=== PATIENT | female | born 1970 | race Caucasian/White ===

== ENCOUNTER 2017-06-10 08:42 | Emergency (ER) | payer OTHER ==
[~2017-06-10 08:42] MED LIST: ALENDRONATE SOD70 M3 PO; ASPIRIN ADULT L81 M5 PO; COL100 PO; FOLIC ACID1 MG PO; FOS10 PO; GLU500 PO; MET2.5 PO; METHOTREXATE2.5 M2 PO; MOTRIN600 MG PO; PRE5 PO; PRILOSEC20 MG PO
[2017-06-10 10:32] LABS: BASOPHIL % 0.5 % (0-2); PLATELET COUNT 281 x10^3mcL (130-400); RED CELL DISTRIBUTION WIDTH 14.1 % (11.5-14.5)
[2017-06-10 10:34] LABS: CARBON DIOXIDE 26.2 mmol/L (21-32); CHLORIDE SERUM 106 mmol/L (98-107); CREATININE SERUM 0.7 mg/dL (0.6-1.0); GFR1 > 60 mL/min; GLUCOSE SERUM 104 mg/dL (74-106); POTASSIUM SERUM 3.5 mmol/L (3.5-5.1); SODIUM SERUM 143 mmol/L (136-145)
[2017-06-10 10:38] LABS: ALBUMIN 4.2 g/dL (3.4-5.0); ALKALINE PHOSPHATASE 124 U/L (46-116); ALT/SGPT 21 U/L (14-59); AST/SGOT 15 U/L (15-37); BILIRUBIN TOTAL 0.37 mg/dL (0.20-1.00); LIPASE 182 IU/L (73-393)
[2017-06-10 14:33] VITALS: BP 121/71
== END 2017-06-10 15:42 | disposition home or self-care (01) ==
LOC: ED 08:42
PROVIDERS: Emergency Medicine
DX: R19.7 Diarrhea, unspecified (principal); R10.13 Epigastric pain; E11.9 Type 2 diabetes mellitus without complications; M79.7 Fibromyalgia; M81.0 Age-related osteoporosis without current pathological fracture; M06.9 Rheumatoid arthritis, unspecified; Z88.2 Allergy status to sulfonamides; Z88.1 Allergy status to other antibiotic agents; Z88.8 Allergy status to other drugs, medicaments and biological substances
CPT/HCPCS: 87046; 87046-59; J1170; J2405; J7030

== ENCOUNTER 2017-08-29 13:49 | Emergency (ER) | payer OTHER ==
[~2017-08-29] VITALS: Ht 154.9 cm; Wt 56.2 kg
[2017-08-29 14:01] VITALS: BP 164/99; Ht 154.9 cm; Wt 56.2 kg
== END 2017-08-29 14:58 | disposition home or self-care (01) ==
LOC: ED 13:49
DX: L03.012 Cellulitis of left finger (principal)

== ENCOUNTER 2017-10-08 13:25 | Emergency (ER) | payer OTHER ==
[~2017-10-08] VITALS: Ht 154.9 cm; Wt 56.7 kg
[2017-10-08 14:10] VITALS: BP 132/87; Ht 154.9 cm; Wt 56.7 kg
== END 2017-10-08 17:40 | disposition home or self-care (01) ==
LOC: ED 13:25
DX: L02.414 Cutaneous abscess of left upper limb (principal); M79.7 Fibromyalgia; E11.9 Type 2 diabetes mellitus without complications; M06.9 Rheumatoid arthritis, unspecified; M81.0 Age-related osteoporosis without current pathological fracture; Z88.2 Allergy status to sulfonamides; Z88.1 Allergy status to other antibiotic agents; Z88.8 Allergy status to other drugs, medicaments and biological substances

== ENCOUNTER 2018-02-17 20:48 | Emergency (ER) | payer OTHER ==
[~2018-02-17] VITALS: Ht 154.9 cm; Wt 53.5 kg
[2018-02-17 20:53] VITALS: Ht 154.9 cm; Wt 53.5 kg
[2018-02-17 22:19] LABS: BASOPHIL % 0.6 % (0-2); PLATELET COUNT 307 x10^3mcL (130-400); RED CELL DISTRIBUTION WIDTH 14.1 % (11.5-14.5)
[2018-02-17 22:28] LABS: CALCIUM 8.4 mg/dL (8.5-10.1); CARBON DIOXIDE 27.9 mmol/L (21-32); CHLORIDE SERUM 105 mmol/L (98-107); CREATININE SERUM 0.6 mg/dL (0.6-1.0); GFR1 > 60 mL/min; GLUCOSE SERUM 90 mg/dL (74-106); POTASSIUM SERUM 3.7 mmol/L (3.5-5.1); SODIUM SERUM 143 mmol/L (136-145)
[2018-02-17 22:33] LABS: ALBUMIN 3.8 g/dL (3.4-5.0); ALKALINE PHOSPHATASE 124 U/L (46-116); ALT/SGPT 12 U/L (14-59); AST/SGOT 12 U/L (15-37); BILIRUBIN TOTAL 0.3 mg/dL (0.20-1.00); TOTAL PROTEIN, SERUM 7.3 g/dL (6.4-8.2)
[2018-02-17 23:27] VITALS: BP 121/83
== END 2018-02-17 23:27 | disposition home or self-care (01) ==
LOC: ED 20:48
PROVIDERS: Emergency Medicine
DX: M79.1 Myalgia (principal); M06.9 Rheumatoid arthritis, unspecified; Z90.710 Acquired absence of both cervix and uterus; Z90.49 Acquired absence of other specified parts of digestive tract
CPT/HCPCS: 36415; J2270

== ENCOUNTER 2018-06-01 18:15 | Emergency (ER) | payer MEDICAID ==
[~2018-06-01] VITALS: Ht 154.9 cm; Wt 51.7 kg
[2018-06-01 18:55] VITALS: Ht 154.9 cm; Wt 51.7 kg
[2018-06-01 20:11] VITALS: BP 154/96
== END 2018-06-01 20:11 | disposition home or self-care (01) ==
LOC: ED 18:15
DX: M75.91 Shoulder lesion, unspecified, right shoulder (principal); E11.9 Type 2 diabetes mellitus without complications; M06.9 Rheumatoid arthritis, unspecified; M81.0 Age-related osteoporosis without current pathological fracture; F41.9 Anxiety disorder, unspecified; M79.7 Fibromyalgia; Z88.2 Allergy status to sulfonamides; Z90.49 Acquired absence of other specified parts of digestive tract; Z90.710 Acquired absence of both cervix and uterus; Z88.1 Allergy status to other antibiotic agents; Z88.6 Allergy status to analgesic agent

== ENCOUNTER 2018-09-15 19:53 | Emergency (ER) | payer MEDICAID ==
[~2018-09-15] VITALS: Ht 154.9 cm; Wt 57.2 kg
[2018-09-15 21:10] LABS: BASOPHIL % 0.4 % (0-2); PLATELET COUNT 352 x10^3mcL (130-400); RED CELL DISTRIBUTION WIDTH 13.4 % (11.5-14.5)
[2018-09-15 21:21] LABS: CALCIUM 9.6 mg/dL (8.5-10.1); CHLORIDE SERUM 107 mmol/L (98-107); CREATININE SERUM 0.7 mg/dL (0.6-1.0); GFR1 > 60 mL/min; GLUCOSE SERUM 104 mg/dL (74-106); POTASSIUM SERUM 3.5 mmol/L (3.5-5.1); SODIUM SERUM 146 mmol/L (136-145)
[2018-09-15 21:26] LABS: ALBUMIN 4.1 g/dL (3.4-5.0); ALKALINE PHOSPHATASE 93 U/L (46-116); ALT/SGPT 19 U/L (14-59); AST/SGOT 12 U/L (15-37); BILIRUBIN TOTAL 0.35 mg/dL (0.20-1.00); TOTAL PROTEIN, SERUM 8.3 g/dL (6.4-8.2)
[2018-09-15 23:57] VITALS: BP 160/90
== END 2018-09-15 23:57 | disposition home or self-care (01) ==
LOC: ED 19:53
PROVIDERS: Emergency Medicine
DX: G89.29 Other chronic pain (principal); M54.9 Dorsalgia, unspecified; R10.9 Unspecified abdominal pain; E11.9 Type 2 diabetes mellitus without complications; M06.9 Rheumatoid arthritis, unspecified; M81.0 Age-related osteoporosis without current pathological fracture; M79.7 Fibromyalgia; F41.9 Anxiety disorder, unspecified; Z90.710 Acquired absence of both cervix and uterus; Z90.49 Acquired absence of other specified parts of digestive tract; Z88.2 Allergy status to sulfonamides; Z88.1 Allergy status to other antibiotic agents; Z88.6 Allergy status to analgesic agent
CPT/HCPCS: J2270; J2405; J3010; J7030; Q0092

== ENCOUNTER 2019-04-02 23:19 | Emergency (ER) | payer OTHER ==
[~2019-04-02] VITALS: Ht 154.9 cm; Wt 53.1 kg
[2019-04-02 23:31] VITALS: Ht 154.9 cm; Wt 53.1 kg
[2019-04-02 23:55] LABS: microscopic required? NO
[2019-04-03 00:01] LABS: UA SPECIFIC GRAVITY <=1.005 (1.005-1.035); urine erythrocyte NEGATIVE (NEGATIVE)
[2019-04-03 00:06] LABS: BASOPHIL % 0.3 % (0-2); PLATELET COUNT 260 x10^3mcL (130-400); RED CELL DISTRIBUTION WIDTH 13.5 % (11.5-14.5)
[2019-04-03 00:13] LABS: CALCIUM 8.6 mg/dL (8.5-10.1); CARBON DIOXIDE 24.9 mmol/L (21-32); CHLORIDE SERUM 109 mmol/L (98-107); CREATININE SERUM 0.7 mg/dL (0.6-1.0); GFR1 > 60 mL/min; GLUCOSE SERUM 123 mg/dL (74-106); POTASSIUM SERUM 3.1 mmol/L (3.5-5.1); SODIUM SERUM 147 mmol/L (136-145)
[2019-04-03 00:27] LABS: ALBUMIN 3.7 g/dL (3.4-5.0); ALKALINE PHOSPHATASE 103 U/L (46-116); ALT/SGPT 15 U/L (14-59); AST/SGOT 10 U/L (15-37); BILIRUBIN TOTAL 0.5 mg/dL (0.20-1.00); LIPASE 101 IU/L (73-393); TOTAL PROTEIN, SERUM 7.5 g/dL (6.4-8.2)
[2019-04-03 01:34] VITALS: BP 145/87
== END 2019-04-03 01:34 | disposition home or self-care (01) ==
LOC: ED 23:19
PROVIDERS: Emergency Medicine
DX: R10.816 Epigastric abdominal tenderness (principal); R19.7 Diarrhea, unspecified; E11.9 Type 2 diabetes mellitus without complications; M06.9 Rheumatoid arthritis, unspecified; M79.7 Fibromyalgia; F41.9 Anxiety disorder, unspecified; M81.0 Age-related osteoporosis without current pathological fracture; Z90.49 Acquired absence of other specified parts of digestive tract; Z90.710 Acquired absence of both cervix and uterus; Z88.2 Allergy status to sulfonamides; Z88.1 Allergy status to other antibiotic agents; Z88.6 Allergy status to analgesic agent
CPT/HCPCS: J2270; J2765; J3010; J3490; J7030

== ENCOUNTER 2020-04-30 09:43 | Emergency (ER) | payer OTHER ==
[2020-04-30 12:38] VITALS: BP 165/93
== END 2020-04-30 12:38 | disposition home or self-care (01) ==
LOC: ED 09:43
DX: J18.9 Pneumonia, unspecified organism (principal); E11.9 Type 2 diabetes mellitus without complications; M06.9 Rheumatoid arthritis, unspecified; Z88.2 Allergy status to sulfonamides; Z20.828 Contact with and (suspected) exposure to other viral communicable diseases
CPT/HCPCS: U0003-CS

== ENCOUNTER 2020-06-26 11:54 | Emergency (ER) | payer OTHER ==
[~2020-06-26] VITALS: Ht 154.9 cm; Wt 62.6 kg
[2020-06-26 12:23] VITALS: Ht 154.9 cm; Wt 62.6 kg
[2020-06-26 15:29] VITALS: BP 121/88
== END 2020-06-26 15:39 | disposition home or self-care (01) ==
LOC: ED 11:54
DX: S32.009A Unspecified fracture of unspecified lumbar vertebra, initial encounter for closed fracture (principal); E11.9 Type 2 diabetes mellitus without complications; M06.9 Rheumatoid arthritis, unspecified; M81.0 Age-related osteoporosis without current pathological fracture; M79.7 Fibromyalgia; Z90.49 Acquired absence of other specified parts of digestive tract; Z88.1 Allergy status to other antibiotic agents; Z88.2 Allergy status to sulfonamides; Z88.6 Allergy status to analgesic agent; X58.XXXA Exposure to other specified factors, initial encounter; Y93.89 Activity, other specified; Y92.89 Other specified places as the place of occurrence of the external cause; Y99.8 Other external cause status
CPT/HCPCS: J3010

== ENCOUNTER 2020-08-15 16:43 | Inpatient (IN) | payer OTHER ==
[~2020-08-15] VITALS: Ht 165.1 cm; Wt 68.0 kg
[2020-08-15 16:58] VITALS: Ht 165.1 cm; Wt 68.0 kg
[2020-08-15 19:26] LABS: BASOPHIL % 0.4 % (0.2-1.3)
[2020-08-15 19:28] LABS: PLATELET COUNT 388 x10^3mcL (179-408); RED CELL DISTRIBUTION WIDTH 14.2 % (12.3-17.7)
[2020-08-15 19:39] LABS: rbc morphology (normal/abnorm) ABNORMAL (NORMAL)
[2020-08-15 19:56] LABS: CALCIUM 8.7 mg/dL (8.5-10.1); CHLORIDE SERUM 93 mmol/L (98-107); CREATININE SERUM 1.3 mg/dL (0.6-1.0); GFR1 46 mL/min; GLUCOSE SERUM 264 mg/dL (74-106); POTASSIUM SERUM 3.4 mmol/L (3.5-5.1); SODIUM SERUM 129 mmol/L (136-145)
[2020-08-15 20:00] LABS: ALBUMIN 3.5 g/dL (3.4-5.0); ALKALINE PHOSPHATASE 98 U/L (46-116); ALT/SGPT 99 U/L (14-59); AST/SGOT 120 U/L (15-37); BILIRUBIN TOTAL 0.5 mg/dL (0.20-1.00); TOTAL PROTEIN, SERUM 6.6 g/dL (6.4-8.2)
[2020-08-15 21:12] LABS: CHOLESTEROL/HDL RATIO 3.8
[2020-08-16 00:37] LABS: UA SPECIFIC GRAVITY >=1.030 (1.005-1.035); microscopic required? YES; urine erythrocyte NEGATIVE (NEGATIVE)
[2020-08-16 00:53] LABS: AMPHETAMINE QUAL UR NONE DETECTED (See below)
[2020-08-16] MEDS ORDERED: BUSPIRONE HCL15 MG PO (06:30)
[2020-08-16] MEDS ORDERED: HYDROXYZINE HYD50 M1 PO (06:30)
[2020-08-16] MEDS ORDERED: GABAPENTIN300 M4 PO (06:30)
[2020-08-16] MEDS ORDERED: QUETIAPINE FUM100 M1 PO (06:30)
[2020-08-16] MEDS ORDERED: METHOCARBAMOL750 MG PO (06:30)
[2020-08-16] MEDS ORDERED: DULOXETINE HYDR30 MG PO (06:30)
[2020-08-16 10:22] LABS: CALCIUM 8.7 mg/dL (8.5-10.1); CARBON DIOXIDE 29.3 mmol/L (21-32); CHLORIDE SERUM 100 mmol/L (98-107); CREATININE SERUM 0.7 mg/dL (0.6-1.0); GFR1 > 60 mL/min; GLUCOSE SERUM 136 mg/dL (74-106); MAGNESIUM 1.8 mg/dL (1.8-2.4); PHOSPHOROUS 3.6 mg/dL (2.5-4.9); POTASSIUM SERUM 4.1 mmol/L (3.5-5.1); SODIUM SERUM 134 mmol/L (136-145)
[2020-08-16 11:47] LABS: PLATELET COUNT 354 x10^3mcL (179-408)
[2020-08-16 12:06] LABS: RED CELL DISTRIBUTION WIDTH 14.6 % (12.3-17.7)
[2020-08-16 13:53] LABS: MONOCYTE 4 % (0-7); PLATELET MORPHOLOGY PLATELETS NORMAL; SEGMENTED NEUTROPHILS 88 % (37-75); rbc morphology (normal/abnorm) ABNORMAL (NORMAL)
[2020-08-17 07:15] LABS: BASOPHIL % 0.4 % (0.2-1.3); PLATELET COUNT 361 x10^3mcL (179-408); RED CELL DISTRIBUTION WIDTH 14.1 % (12.3-17.7)
[2020-08-17 07:42] LABS: CALCIUM 8.6 mg/dL (8.5-10.1); CARBON DIOXIDE 26.3 mmol/L (21-32); CHLORIDE SERUM 100 mmol/L (98-107); CREATININE SERUM 0.7 mg/dL (0.6-1.0); GFR1 > 60 mL/min; GLUCOSE SERUM 121 mg/dL (74-106); MAGNESIUM 2.1 mg/dL (1.8-2.4); SODIUM SERUM 136 mmol/L (136-145)
[2020-08-17 08:05] LABS: POTASSIUM SERUM 2.8 mmol/L (3.5-5.1)
[2020-08-17] MEDS ORDERED: MUCINEX600 MG PO (11:46)
[2020-08-17] MEDS ORDERED: LEVAQUIN750 MG PO (11:46)
[2020-08-17] MEDS ORDERED: PROINH INH (11:47)
[2020-08-17 12:56] LABS: rbc morphology (normal/abnorm) ABNORMAL (NORMAL)
[2020-08-17 15:13] VITALS: BP 115/52
== END 2020-08-17 16:35 | disposition home or self-care (01) | DRG 720 ==
LOC: ED 16:43 → DU 20:00
PROVIDERS: Internal Medicine; Student in an Organized Health Care Education/Training Program; ADMIT Family Medicine; ATTEND Family Medicine
DX: A41.89 Other specified sepsis (principal); J96.01 Acute respiratory failure with hypoxia; J69.0 Pneumonitis due to inhalation of food and vomit; N17.0 Acute kidney failure with tubular necrosis; T40.601A Poisoning by unspecified narcotics, accidental (unintentional), initial encounter; M81.0 Age-related osteoporosis without current pathological fracture; Z60.2 Problems related to living alone; M06.9 Rheumatoid arthritis, unspecified; M79.7 Fibromyalgia; F41.9 Anxiety disorder, unspecified; G62.9 Polyneuropathy, unspecified; E87.1 Hypo-osmolality and hyponatremia; Z88.6 Allergy status to analgesic agent; Z20.822 Contact with and (suspected) exposure to COVID-19; Z88.1 Allergy status to other antibiotic agents; Z88.2 Allergy status to sulfonamides; Z90.49 Acquired absence of other specified parts of digestive tract; Z90.710 Acquired absence of both cervix and uterus; Y92.89 Other specified places as the place of occurrence of the external cause; Z79.82 Long term (current) use of aspirin; Z83.3 Family history of diabetes mellitus; Z82.49 Family history of ischemic heart disease and other diseases of the circulatory system; Z81.1 Family history of alcohol abuse and dependence; E87.6 Hypokalemia
CPT/HCPCS: 36600; G0378; G0480; J1644; J2405; J2543; J3370; J3480; J7030; J7060; U0003